=== PATIENT | female | born 1990 | race Caucasian/White ===

== ENCOUNTER 2021-08-09 09:25 | Outpatient (CLI) | payer SELFPAY ==
[2021-08-09 09:36] VITALS: BP 124/63; PULSE 94; RESP 18; TEMP 36.8; O2SAT 96; BMI 46.6
[2021-08-09 10:14] VITALS: BP 116/68; PULSE 89; RESP 16; TEMP 36.4; O2SAT 95
[2021-08-09 11:15] VITALS: BP 116/70; PULSE 90; RESP 16; TEMP 36.4; O2SAT 96
== END 2021-08-09 09:26 | disposition home or self-care (01) ==
LOC: OPS 09:28
PROVIDERS: PCP Family Medicine; Visit Provider Nurse Practitioner Family
DX: U07.1 COVID-19 (principal)
CPT/HCPCS: 96365